=== PATIENT | male | born 1985 | race Caucasian/White ===

== ENCOUNTER 2018-08-24 16:56 | Emergency (ER) | payer MEDICAID ==
[~2018-08-24] VITALS: Ht 177.8 cm; Wt 125.0 kg
[2018-08-24 17:02] VITALS: BP 146/98
[2018-08-24] MEDS ORDERED: ketorolac tromethamine 15mg/ml inj. IM ONE ×2 (18:00→18:10)
[2018-08-24] MEDS ORDERED: cyclobenzaprine 10mg tablet PO ONE (18:10)
[2018-08-24] MEDS ORDERED: IBUP-1984 PO (18:22)
[2018-08-24] MEDS ORDERED: CYCL-1 PO (18:22)
== END 2018-08-24 19:01 | disposition home or self-care (01) ==
LOC: ER 16:57
DX: S39.012A Strain of muscle, fascia and tendon of lower back, initial encounter (principal); Z79.899 Other long term (current) drug therapy; X58.XXXA Exposure to other specified factors, initial encounter; Y93.89 Activity, other specified; Y92.89 Other specified places as the place of occurrence of the external cause; Y99.8 Other external cause status
CPT/HCPCS: 96372; 99283; J1885

== ENCOUNTER 2019-09-15 09:47 | Emergency (ER) | payer MEDICAID ==
[~2019-09-15] VITALS: Ht 177.8 cm; Wt 119.0 kg
[2019-09-15] MEDS ORDERED: morphine 4 MG/ML inj SYRINge IM ONE (11:10)
[2019-09-15] MEDS ORDERED: ondansetron 4mg rapidly disintigrating tab PO ONE (11:10)
[2019-09-15] MEDS ORDERED: CYCL-1 PO (11:51)
[2019-09-15] MEDS ORDERED: HYDR-3965 PO (11:51)
[2019-09-15] MEDS ORDERED: IBUP-1985 PO (11:51)
[2019-09-15] MEDS ORDERED: ketorolac trometh. 30mg/ml inj. IM ONE (11:55)
[2019-09-15] MEDS ORDERED: cyclobenzaprine 10mg tablet PO ONE (11:55)
[2019-09-15 12:20] VITALS: BP 130/70
== END 2019-09-15 12:32 | disposition home or self-care (01) ==
LOC: ER 09:47
DX: S39.92XA Unspecified injury of lower back, initial encounter (principal); M51.16 Intervertebral disc disorders with radiculopathy, lumbar region; W01.0XXA Fall on same level from slipping, tripping and stumbling without subsequent striking against object, initial encounter; Y93.89 Activity, other specified; Y92.89 Other specified places as the place of occurrence of the external cause; Y99.9 Unspecified external cause status
CPT/HCPCS: 72131; 72192; 96372; 99285; J1885; J2270